=== PATIENT | female | born 1955 | race Caucasian/White ===

== ENCOUNTER 2018-08-12 10:10 | Inpatient (IN) | payer OTHER ==
[2018-08-12 12:55] LABS: ADD MAN DIFF? NO
[2018-08-12 12:59] LABS: WHITE BLOOD COUNT 6.3 10^3/ul (4.8-10.8)
[2018-08-12 12:59] LABS: BASOPHIL # 0.1 10^3/ul (0.0-0.1); EOSINOPHILS # 0.4 10^3/ul (0.0-0.5); EOSINOPHILS % 6.8 % (0.0-7.0); HEMATOCRIT 40.2 % (37.0-47.0); HEMOGLOBIN 13.2 g/dl (12.0-16.0); LYMPHOCYTES % 31.7 % (15.0-51.0); MEAN CORPUSCULAR HEMOGLOBIN 29.9 pg (29.0-33.0); MEAN CORPUSCULAR HGB CONC 32.8 g/dl (32.0-37.0); MEAN CORPUSCULAR VOLUME 91.2 fl (82.0-101.0); MEAN PLATELET VOLUME 10.5 fl (7.4-10.4); MONOCYTE # 0.7 10^3/ul (0.3-0.9); MONOCYTES % 11.5 % (0.0-11.0); NEUTROPHIL # 3.1 10^3/ul (1.6-7.5); NEUTROPHILS % 48.7 % (39.0-77.0); PLATELET COUNT 248 10^3/UL (140-415); RED BLOOD COUNT 4.41 10^6/ul (4.20-5.40); RED CELL DISTRIBUTION WIDTH 13.2 % (11.5-14.5)
[2018-08-12] MEDS ORDERED: ONDANSETRON 4 MG INJ IV ×2 (13:00→17:00)
[2018-08-12] MEDS: MONTELUKAST 10 MG TAB PO (13:00)
[2018-08-12] MEDS ORDERED: ACETAMINOPHEN 325 MG TAB PO ×2 (13:00→18:30)
[2018-08-12] MEDS: FLUTICASONE/VILANTEROL 100-25 INH (13:00)
[2018-08-12 13:19] LABS: ALANINE AMINOTRANSFERASE 48 IU/L (13-69); ALBUMIN 4.6 g/dl (3.3-4.9); ALBUMIN/GLOBULIN RATIO 1.27; ALKALINE PHOSPHATASE 65 IU/L (42-121); ANION GAP 12 (5-13); ASPARTATE AMINO TRANSFERASE 58 IU/L (15-46); BLOOD UREA NITROGEN 13 mg/dl (7-20); CALCIUM 9.8 mg/dl (8.4-10.2); CARBON DIOXIDE 28 mmol/L (21-31); CHLORIDE 101 mmol/L (97-110); CREATININE 0.55 mg/dl (0.44-1.00); Estimated GFR > 60 mL/min (>60); GLUCOSE 102 mg/dl (70-220); SODIUM 141 mmol/L (135-144); TOTAL PROTEIN 8.2 g/dl (6.1-8.1)
[2018-08-12 13:31] LABS: INR 0.94; PROTIME 12.7 Sec (11.9-14.9)
[2018-08-12 13:33] LABS: PARTIAL THROMBOPLASTIN TIME 30.7 Sec (23.0-35.0)
[2018-08-12] MEDS ORDERED: KETOROLAC 30 MG INJ IV (17:00)
[2018-08-12] MEDS ORDERED: HYDROmorphONE 1 MG/5 ML IV SYRINGE IV ×3 (17:00)
[2018-08-12] MEDS ORDERED: DIPHENHYDRAMINE 50 MG INJ IV (17:00)
[2018-08-12] MEDS ORDERED: FENTAnyl 50 MCG/ML VIAL IV ×3 (17:00)
[2018-08-12] MEDS ORDERED: MEPERIDINE 25 MG INJ IV (17:00)
[2018-08-12] MEDS ORDERED: NEOMYC/POLYMYX/BACIT 30 GM OINT (17:05)
[2018-08-12] MEDS ORDERED: ROPIVACAINE 0.5 % 30 ML VIAL ×2 (17:05→17:22)
[2018-08-12] MEDS ORDERED: POLYMYXIN/BACITRACIN 1L IRRIG (17:11)
[2018-08-12] MEDS ORDERED: MIDAZOLAM 1 MG/ML 2 ML INJ (17:18)
[2018-08-12] MEDS ORDERED: METOCLOPRAMIDE 10 MG INJ (17:19)
[2018-08-12] MEDS ORDERED: PROPOFOL 20 ML ×2 (17:21→21:07)
[2018-08-12] MEDS ORDERED: CEFAZOLIN 1 GM INJ (17:21)
[2018-08-12] MEDS ORDERED: ONDANSETRON 4 MG INJ (17:21)
[2018-08-12] MEDS ORDERED: KETOROLAC 30 MG INJ (17:22)
[2018-08-12] MEDS: POLYMYXIN/BACITRACIN 1L IRRIG (17:24)
[2018-08-12] MEDS ORDERED: ROPIVACAINE 0.2% 20 ML VIAL (18:20)
[2018-08-12] MEDS ORDERED: CEFAZOLIN 1 GM INJ IV (18:30)
[2018-08-12] MEDS ORDERED: DIPHENHYDRAMINE 25 MG CAP PO (18:30)
[2018-08-12] MEDS ORDERED: FENTAnyl 50 MCG/ML VIAL (18:41)
[2018-08-12] MEDS ORDERED: HYDROmorphONE 2 MG/ML SYG (19:03)
[2018-08-12] MEDS: GABAPENTIN 300 MG CAP PO (23:14)
[2018-08-12] MEDS: CEFAZOLIN 1 GM/50 ML (PMX) 50 ML IVPB (23:14)
[2018-08-13 04:03] LABS: ADD UMIC NO; UR ASCORBIC ACID NEGATIVE (NEGATIVE); UR BACTERIA FEW /HPF (NONE SEEN); UR BILIRUBIN (Dip) NEGATIVE (NEGATIVE); UR BLOOD (Dip) NEGATIVE (NEGATIVE); UR CLARITY SLIGHTLY CLOUDY (CLEAR); UR COLOR AMBER (YELLOW); UR GLUCOSE (Dip) NEGATIVE (NEGATIVE); UR KETONES (Dip) TRACE mg/dL (NEGATIVE); UR LEUKOCYTE ESTERASE (Dip) NEGATIVE Leu/ul (NEGATIVE); UR MUCUS FEW /HPF (NONE SEEN); UR NITRITE (Dip) NEGATIVE (NEGATIVE); UR NONSQUAMOUS EPITHELIAL CELL 1 /HPF (NONE SEEN); UR RBC 1 /HPF (0-5); UR SPECIFIC GRAVITY (Dip) 1.028 (1.003-1.030); UR SQUAMOUS EPITHELIAL CELL FEW /HPF (FEW); UR TOTAL PROTEIN (Dip) NEGATIVE (NEGATIVE); UR UROBILINOGEN (Dip) NEGATIVE (NEGATIVE); UR WBC 3 /HPF (0-5)
[2018-08-13] MEDS: CEFAZOLIN 1 GM/50 ML (PMX) 50 ML IVPB ×3 (05:45→21:18)
[2018-08-13] MEDS: FLUTICASONE/VILANTEROL 100-25 INH (08:58)
[2018-08-13] MEDS ORDERED: ASCORBIC ACID 500 MG TAB.CHEW PO (09:00)
[2018-08-13] MEDS: GABAPENTIN 300 MG CAP PO ×3 (09:01→21:18)
[2018-08-13] MEDS: CHOLECALCIFEROL 1,000 UNIT TAB PO (09:04)
[2018-08-13] MEDS: oxyCODONE 5 MG TAB PO (09:08)
[2018-08-13] MEDS: ASCORBIC ACID 500 MG TAB PO (10:39)
[2018-08-13] MEDS: HYDROmorphONE 1 MG/ML SYG IV (10:42)
[2018-08-13] MEDS: ONDANSETRON 4 MG INJ IV (10:45)
[2018-08-13 14:42] LABS: HEPATITIS B SURFACE ANTIGEN NEGATIVE (NEGATIVE)
[2018-08-13] MEDS: KETOROLAC 30 MG INJ IV (15:47)
[2018-08-13] MEDS: ACETAMINOPHEN 500 MG TAB PO ×2 (15:48→21:18)
[2018-08-13 16:17] LABS: HEPATITIS C VIRAL ANTIBODY NEGATIVE (NEGATIVE)
[2018-08-13] MEDS: RIVAROXABAN 10 MG TABLET PO (18:15)
[2018-08-14] MEDS: ACETAMINOPHEN 500 MG TAB PO ×2 (04:33→09:36)
[2018-08-14] MEDS: CEFAZOLIN 1 GM/50 ML (PMX) 50 ML IVPB ×2 (06:11→13:11)
[2018-08-14] MEDS: FLUTICASONE/VILANTEROL 100-25 INH (09:00)
[2018-08-14] MEDS: CHOLECALCIFEROL 1,000 UNIT TAB PO (09:36)
[2018-08-14] MEDS: GABAPENTIN 300 MG CAP PO ×2 (09:37→13:11)
[2018-08-14] MEDS: ASCORBIC ACID 500 MG TAB PO (09:37)
== END 2018-08-14 16:30 | disposition home or self-care (01) | DRG 494 ==
LOC: E/R 10:10 → REC 12:46 → MS1 22:50
PROVIDERS: Internal Medicine
PROC: 0QSK04Z Reposition Left Fibula with Internal Fixation Device, Open Approach (ICD-10-PCS; principal; 2018-08-12 17:00)
PROC: 0QSH04Z Reposition Left Tibia with Internal Fixation Device, Open Approach (ICD-10-PCS; 2018-08-12 17:00)
PROC: 0SSG04Z Reposition Left Ankle Joint with Internal Fixation Device, Open Approach (ICD-10-PCS; 2018-08-12 17:00)
PROC: 0QCH0ZZ Extirpation of Matter from Left Tibia, Open Approach (ICD-10-PCS; 2018-08-12 17:00)
PROC: 0QUK0KZ Supplement Left Fibula with Nonautologous Tissue Substitute, Open Approach (ICD-10-PCS; 2018-08-12 17:00)
PROC: 0QUH0KZ Supplement Left Tibia with Nonautologous Tissue Substitute, Open Approach (ICD-10-PCS; 2018-08-12 17:00)
DX: S82.852A Displaced trimalleolar fracture of left lower leg, initial encounter for closed fracture (principal); J45.20 Mild intermittent asthma, uncomplicated; J31.0 Chronic rhinitis; G43.909 Migraine, unspecified, not intractable, without status migrainosus; W10.9XXA Fall (on) (from) unspecified stairs and steps, initial encounter; Y92.009 Unspecified place in unspecified non-institutional (private) residence as the place of occurrence of the external cause; Z90.49 Acquired absence of other specified parts of digestive tract
CPT/HCPCS: 71045; 73610; 80053; 81001; 81003; 82306; 85025; 85610; 85730; 86803; 87340; 93005; 97110; 97116; 97161; 97530; 99285-25